=== PATIENT | male | born 1955 | race Caucasian/White ===

== ENCOUNTER 2020-09-28 10:26 | Outpatient (REF) | payer MEDICARE, SELFPAY ==
[2020-09-28 11:19] LABS: MANUAL DIFF FLAG NO
[2020-09-28 11:30] LABS: Basophils Percent Auto 0.8 % (0-2); Eosinophils Absolute Auto 0.1 X10*3/uL (0.0-0.4); Eosinophils Percent Auto 2.3 % (0-4); Hematocrit 44.8 % (42-52); Hemoglobin 15.4 g/dl (14.0-18.0); Imm Gran Abs Auto 0.02 X10*3/uL (0.00-0.03); Imm Gran Pct Auto 0.5 % (0.0-0.4); Lymphocytes Absolute Auto 1.6 X10*3/uL (1.2-4.9); Lymphocytes Percent Auto 40.8 % (20-40); Mean Corpuscular HGB Conc 34.4 g/dl (31.0-36.0); Mean Corpuscular Volume 93.1 fL (80-98); Mean Platelet Volume 10.3 fL (9.4-12.4); Monocytes Absolute Auto 0.5 X10*3/uL (0.1-1.2); Monocytes Percent Auto 11.6 % (2-11); Neutrophils Absolute Auto 1.7 X10*3/uL (2.0-8.3); Platelet Count 236 X10*3/uL (160-400); Red Blood Count 4.81 X10*6/uL (4.60-5.80); Red Cell Distribution Width 12.1 % (11.0-16.0)
[2020-09-28 12:24] LABS: Alanine Aminotransferase 19 U/L (0-40); Albumin Level 4.3 g/dL (3.5-5.0); Alkaline Phosphatase 44 U/L (39-117); Anion Gap 11 (12-20); Aspartate Amino Transferase 19 U/L (5-37); Bilirubin Direct 0.3 mg/dL (0.0-0.5); Bilirubin Total 0.7 mg/dL (0.0-1.0); Blood Urea Nitrogen 14 mg/dL (9-16); Carbon Dioxide 29 mmol/L (22-29); Chloride 102 mmol/L (96-108); Estimated Glomerular Filt Rate > 60; Glucose Random 89 mg/dL (60-115); Potassium 4.3 mmol/l (3.3-5.1); Sodium 138 mmol/L (135-145); Total Protein 6.7 g/dL (6.5-8.0)
[2020-09-28 12:31] LABS: Syphilis Screen Nonreactive (Nonreactive)
[2020-09-29 17:07] LABS: Absolute CD3 Count 1551 cells/uL (840-3060); Absolute CD4 Count 797 cells/uL (490-1740); Absolute CD8 Count 760 cells/uL (180-1170); Absolute Lymphocytes 1784 cells/uL (850-3900); CD4 CD8 Ratio 1.05 (0.86-5.00); Percent CD3 Cells 87 % (57-85); Percent CD4 Cells 45 % (30-61); Percent CD8 Cells 43 % (12-42)
[2020-10-01 13:12] LABS: HIV RNA PCR Qn Copies <20 NOT DETECTED copies/mL (NOT DETECTED); HIV RNA PCR Qn Log Copies <1.30 NOT DETECTED (NOT DETECTED)
== END 2020-09-28 10:27 | disposition home or self-care (01) ==
LOC: HO.LAB 10:26
PROVIDERS: PCP Internal Medicine; Visit Provider Internal Medicine
DX: B20 Human immunodeficiency virus [HIV] disease (principal)
CPT/HCPCS: 36415; 80048; 80076; 85025; 86359; 86360; 86780; 87536

== ENCOUNTER → 2020-10-11 10:01 | Outpatient (BNVA) | payer MEDICARE, SELFPAY | PROVIDERS: PCP Internal Medicine; Referring Provider Internal Medicine; Visit Provider Internal Medicine | DX: B20 Human immunodeficiency virus [HIV] disease (principal); L98.9 Disorder of the skin and subcutaneous tissue, unspecified | CPT/HCPCS: 99212 ==

== ENCOUNTER 2021-03-17 09:34 | Outpatient (REF) | payer MEDICARE, SELFPAY ==
[2021-03-17 10:27] LABS: Hematocrit 44.5 % (42-52); Hemoglobin 14.9 g/dl (14.0-18.0); Mean Corpuscular HGB Conc 33.5 g/dl (31.0-36.0); Mean Corpuscular Hemoglobin 31.4 pg (27.0-33.0); Mean Corpuscular Volume 93.9 fL (80-98); Platelet Count 208 X10*3/uL (160-400); Red Blood Count 4.74 X10*6/uL (4.60-5.80); White Blood Count 3.6 X10*3/uL (4.8-10.8)
[2021-03-17 10:50] LABS: Alanine Aminotransferase 17 U/L (0-40); Albumin Level 4.2 g/dL (3.5-5.0); Alkaline Phosphatase 42 U/L (39-117); Anion Gap 12 (12-20); Aspartate Amino Transferase 19 U/L (5-37); Bilirubin Direct 0.2 mg/dL (0.0-0.5); Bilirubin Total 0.5 mg/dL (0.0-1.0); Blood Urea Nitrogen 10 mg/dL (9-16); Calcium 9.4 mg/dL (8.4-10.2); Carbon Dioxide 27 mmol/L (22-29); Chloride 105 mmol/L (96-108); Estimated Glomerular Filt Rate > 60; Glucose Random 105 mg/dL (60-115); Potassium 4.9 mmol/L (3.3-5.1); Sodium 139 mmol/L (135-145); Total Protein 6.6 g/dL (6.5-8.0)
[2021-03-19 14:16] LABS: HIV RNA PCR Qn Copies <20 NOT DETECTED copies/mL (NOT DETECTED); HIV RNA PCR Qn Log Copies <1.30 NOT DETECTED (NOT DETECTED)
[2021-03-20 14:27] LABS: Absolute CD3 Count 1224 cells/uL (840-3060); Absolute CD4 Count 605 cells/uL (490-1740); Absolute CD8 Count 636 cells/uL (180-1170); Absolute Lymphocytes 1471 cells/uL (850-3900); CD4 CD8 Ratio 0.95 (0.86-5.00); Percent CD3 Cells 83 % (57-85); Percent CD4 Cells 41 % (30-61); Percent CD8 Cells 43 % (12-42)
== END 2021-03-17 09:35 | disposition home or self-care (01) ==
LOC: HO.LAB 09:34
PROVIDERS: PCP Internal Medicine; Visit Provider Internal Medicine
DX: B20 Human immunodeficiency virus [HIV] disease (principal)
CPT/HCPCS: 36415; 80048; 80076; 85027; 86359; 86360; 87536

== ENCOUNTER → 2021-04-04 09:56 | Outpatient (BNVA) | payer MEDICARE, SELFPAY | PROVIDERS: PCP Internal Medicine; Visit Provider Internal Medicine | DX: B20 Human immunodeficiency virus [HIV] disease (principal) | CPT/HCPCS: 99212 ==

== ENCOUNTER 2021-09-21 12:15 | Outpatient (REF) | payer MEDICARE, SELFPAY ==
[2021-09-21 13:00] LABS: Hematocrit 45.2 % (42.0-52.0); Hemoglobin 15.4 g/dl (14.0-18.0); Mean Corpuscular HGB Conc 34.1 g/dl (31.0-36.0); Mean Corpuscular Hemoglobin 32.4 pg (27.0-33.0); Mean Platelet Volume 10.3 fL (9.4-12.4); Platelet Count 229 X10*3/uL (160-400); Red Blood Count 4.76 X10*6/uL (4.60-5.80); Red Cell Distribution Width 12.1 % (11.0-16.0); White Blood Count 4.6 X10*3/uL (4.8-10.8)
[2021-09-21 13:32] LABS: Alanine Aminotransferase 17 U/L (0-40); Albumin Level 4.2 g/dL (3.5-5.0); Alkaline Phosphatase 47 U/L (39-117); Anion Gap 11 (12-20); Aspartate Amino Transferase 19 U/L (5-37); Bilirubin Direct 0.2 mg/dL (0.0-0.5); Bilirubin Total 0.6 mg/dL (0.0-1.0); Blood Urea Nitrogen 10 mg/dL (9-16); Calcium 9.4 mg/dL (8.4-10.2); Carbon Dioxide 28 mmol/L (22-29); Chloride 105 mmol/L (96-108); Estimated Glomerular Filt Rate > 60; Glucose Random 91 mg/dL (60-115); Potassium 4.4 mmol/L (3.3-5.1); Sodium 140 mmol/L (135-145); Total Protein 6.7 g/dL (6.5-8.0)
[2021-09-22 03:51] LABS: Syphilis Screen Nonreactive (Nonreactive)
[2021-09-22 13:32] LABS: Absolute CD3 Count 1283 cells/uL (840-3060); Absolute CD4 Count 657 cells/uL (490-1740); Absolute CD8 Count 625 cells/uL (180-1170); Absolute Lymphocytes 1541 cells/uL (850-3900); CD4 CD8 Ratio 1.05 (0.86-5.00); Percent CD3 Cells 83 % (57-85); Percent CD4 Cells 43 % (30-61); Percent CD8 Cells 41 % (12-42)
[2021-09-22 17:51] LABS: HIV RNA PCR Qn Copies <20 NOT DETECTED copies/mL (NOT DETECTED); HIV RNA PCR Qn Log Copies <1.30 NOT DETECTED (NOT DETECTED)
== END 2021-09-21 12:16 | disposition home or self-care (01) ==
LOC: HO.LAB 12:15
PROVIDERS: Visit Provider Internal Medicine
DX: B20 Human immunodeficiency virus [HIV] disease (principal)
CPT/HCPCS: 36415; 80048; 80076; 85027; 86359; 86360; 86780; 87536

== ENCOUNTER → 2021-10-06 09:50 | Outpatient (BNVA) | payer MEDICARE, SELFPAY | PROVIDERS: PCP Internal Medicine; Visit Provider Internal Medicine | DX: B20 Human immunodeficiency virus [HIV] disease (principal) | CPT/HCPCS: 99212 ==

== ENCOUNTER 2022-03-31 11:53 | Outpatient (REF) | payer MEDICARE, SELFPAY ==
[2022-04-02 07:54] LABS: Syphilis Screen Nonreactive (Nonreactive)
[2022-04-02 12:31] LABS: Absolute CD3 Count 1170 cells/uL (840-3060); Absolute CD4 Count 622 cells/uL (490-1740); Absolute CD8 Count 547 cells/uL (180-1170); Absolute Lymphocytes 1361 cells/uL (850-3900); CD4 CD8 Ratio 1.14 (0.86-5.00); Percent CD3 Cells 86 % (57-85); Percent CD4 Cells 46 % (30-61); Percent CD8 Cells 40 % (12-42)
[2022-04-04 08:51] LABS: HIV RNA PCR Qn Copies 67 copies/mL (NOT DETECTED); HIV RNA PCR Qn Log Copies 1.83 (NOT DETECTED)
== END 2022-03-31 11:54 | disposition home or self-care (01) ==
LOC: HO.HMGCLDS 11:53
PROVIDERS: Visit Provider Internal Medicine
DX: B20 Human immunodeficiency virus [HIV] disease (principal)
CPT/HCPCS: 36415; 86359; 86360; 86780; 87536

== ENCOUNTER → 2022-04-04 10:23 | Outpatient (BNVA) | payer MEDICARE, SELFPAY | PROVIDERS: PCP Internal Medicine; Visit Provider Internal Medicine | DX: B20 Human immunodeficiency virus [HIV] disease (principal) | CPT/HCPCS: 99212 ==

== ENCOUNTER 2022-09-14 09:30 | Outpatient (REF) | payer MEDICARE, SELFPAY ==
[2022-09-14 11:19] LABS: MANUAL DIFF FLAG NO
[2022-09-14 11:32] LABS: Eosinophils Absolute Auto 0.1 X10*3/uL (0.0-0.4); Eosinophils Percent Auto 1.5 % (0-4); Hematocrit 45.4 % (42.0-52.0); Hemoglobin 15.5 g/dl (14.0-18.0); Imm Gran Abs Auto 0.01 X10*3/uL (0.00-0.03); Imm Gran Pct Auto 0.3 % (0.0-0.4); Lymphocytes Absolute Auto 1.3 X10*3/uL (1.2-4.9); Lymphocytes Percent Auto 33.5 % (20-40); Mean Corpuscular HGB Conc 34.1 g/dl (31.0-36.0); Mean Corpuscular Hemoglobin 32.3 pg (27.0-33.0); Mean Corpuscular Volume 94.6 fL (80.0-98.0); Mean Platelet Volume 10.4 fL (9.4-12.4); Monocytes Absolute Auto 0.4 X10*3/uL (0.1-1.2); Monocytes Percent Auto 10.6 % (2-11); Neutrophils Absolute Auto 2.1 x10*3/uL (2.0-8.3); Neutrophils Percent Auto 53.1 % (45-73); Platelet Count 222 X10*3/uL (160-400); Red Cell Distribution Width 11.9 % (11.0-16.0); White Blood Count 3.9 X10*3/uL (4.8-10.8)
[2022-09-14 12:00] LABS: Alanine Aminotransferase 20 U/L (0-40); Albumin Level 4.3 g/dL (3.5-5.0); Alkaline Phosphatase 51 U/L (39-117); Anion Gap 16 (12-20); Aspartate Amino Transferase 21 U/L (5-37); Bilirubin Direct 0.3 mg/dL (0.0-0.5); Bilirubin Total 0.5 mg/dL (0.0-1.0); Blood Urea Nitrogen 13 mg/dL (9-16); Calcium 9.6 mg/dL (8.4-10.2); Carbon Dioxide 27 mmol/L (22-29); Chloride 102 mmol/L (96-108); Estimated Glomerular Filt Rate > 60; Glucose Random 94 mg/dL (60-115); Potassium 4.2 mmol/L (3.3-5.1); Sodium 141 mmol/L (135-145)
[2022-09-14 12:07] LABS: Syphilis Screen Nonreactive (Nonreactive)
[2022-09-14 12:09] LABS: ~HepC Num1 0.13 S/CO (0.00-0.79); ~Hepatitis C Antibody Nonreactive (Nonreactive)
[2022-09-17 13:37] LABS: Absolute CD3 Count 1059 cells/uL (840-3060); Absolute CD4 Count 525 cells/uL (490-1740); Absolute CD8 Count 535 cells/uL (180-1170); Absolute Lymphocytes 1209 cells/uL (850-3900); CD4 CD8 Ratio 0.98 (0.86-5.00); Percent CD3 Cells 88 % (57-85); Percent CD4 Cells 43 % (30-61); Percent CD8 Cells 44 % (12-42)
[2022-09-17 18:32] LABS: TS Negative Control Passed; TS Panel A 2; TS Panel B 5; TS Positive Control Passed; TSpotTB Borderline (Negative)
[2022-09-18 20:03] LABS: HIV RNA PCR Qn Copies NOT DETECTED copies/mL (NOT DETECTED); HIV RNA PCR Qn Log Copies NOT DETECTED (NOT DETECTED)
== END 2022-09-14 09:31 | disposition home or self-care (01) ==
LOC: HO.HMGCLDS 09:30
PROVIDERS: PCP Internal Medicine; Visit Provider Internal Medicine
DX: B20 Human immunodeficiency virus [HIV] disease (principal)
CPT/HCPCS: 36415; 80048; 80076; 85025; 86359; 86360; 86481; 86780; 86803; 87536

== ENCOUNTER → 2022-10-03 15:20 | Outpatient (BNVA) | payer MEDICARE, SELFPAY | PROVIDERS: PCP Internal Medicine; Visit Provider Internal Medicine | DX: B20 Human immunodeficiency virus [HIV] disease (principal) | CPT/HCPCS: 99212 ==

== ENCOUNTER 2023-03-02 07:20 | Outpatient (REF) | payer MEDICARE, SELFPAY ==
[2023-03-02 11:51] LABS: MANUAL DIFF FLAG NO
[2023-03-02 11:53] LABS: Eosinophils Absolute Auto 0.1 X10*3/uL (0.0-0.4); Eosinophils Percent Auto 1.2 % (0-4); Hematocrit 44.8 % (42.0-52.0); Hemoglobin 14.9 g/dl (14.0-18.0); Imm Gran Abs Auto 0.01 X10*3/uL (0.00-0.03); Imm Gran Pct Auto 0.2 % (0.0-0.4); Lymphocytes Absolute Auto 1.2 X10*3/uL (1.2-4.9); Lymphocytes Percent Auto 29.5 % (20-40); Mean Corpuscular HGB Conc 33.3 g/dl (31.0-36.0); Mean Corpuscular Hemoglobin 31.9 pg (27.0-33.0); Mean Corpuscular Volume 95.9 fL (80.0-98.0); Mean Platelet Volume 10.9 fL (9.4-12.4); Monocytes Absolute Auto 0.4 X10*3/uL (0.1-1.2); Monocytes Percent Auto 10.4 % (2-11); Neutrophils Absolute Auto 2.3 x10*3/uL (2.0-8.3); Neutrophils Percent Auto 57.7 % (45-73); Platelet Count 223 X10*3/uL (160-400); Red Blood Count 4.67 X10*6/uL (4.60-5.80); Red Cell Distribution Width 12.4 % (11.0-16.0)
[2023-03-02 12:16] LABS: Alanine Aminotransferase 24 U/L (0-40); Alkaline Phosphatase 42 U/L (39-117); Anion Gap 11 (12-20); Aspartate Amino Transferase 21 U/L (5-37); Bilirubin Direct 0.3 mg/dL (0.0-0.5); Bilirubin Total 0.8 mg/dL (0.0-1.0); Blood Urea Nitrogen 12 mg/dL (9-16); Calcium 9.1 mg/dL (8.4-10.2); Carbon Dioxide 28 mmol/L (22-29); Chloride 106 mmol/L (96-108); Estimated Glomerular Filt Rate > 60; Glucose Random 95 mg/dL (60-115); Potassium 4.3 mmol/L (3.3-5.1); Sodium 141 mmol/L (135-145); Total Protein 6.3 g/dL (6.5-8.0)
[2023-03-04 08:29] LABS: ~Hepatitis C Antibody Nonreactive (Nonreactive)
[2023-03-04 08:54] LABS: Syphilis Screen Nonreactive (Nonreactive)
[2023-03-04 15:48] LABS: Absolute CD3 Count 1152 cells/uL (840-3060); Absolute CD4 Count 602 cells/uL (490-1740); Absolute CD8 Count 549 cells/uL (180-1170); Absolute Lymphocytes 1326 cells/uL (850-3900); Percent CD3 Cells 87 % (57-85); Percent CD4 Cells 45 % (30-61); Percent CD8 Cells 41 % (12-42)
[2023-03-05 20:28] LABS: HIV RNA PCR Qn Copies NOT DETECTED copies/mL (NOT DETECTED); HIV RNA PCR Qn Log Copies NOT DETECTED (NOT DETECTED)
== END 2023-03-02 07:21 | disposition home or self-care (01) ==
LOC: HO.HMGCLDS 07:20
PROVIDERS: PCP Internal Medicine; Visit Provider Internal Medicine
DX: B20 Human immunodeficiency virus [HIV] disease (principal)
CPT/HCPCS: 36415; 80048; 80076; 85025; 86359; 86360; 86780; 86803; 87536

== ENCOUNTER → 2023-04-03 13:58 | Outpatient (BNVA) | payer MEDICARE, SELFPAY | PROVIDERS: PCP Internal Medicine; Visit Provider Internal Medicine | DX: B20 Human immunodeficiency virus [HIV] disease (principal); Z79.899 Other long term (current) drug therapy | CPT/HCPCS: 99212 ==

== ENCOUNTER 2023-04-16 12:02 | Outpatient (REF) | payer MEDICARE, SELFPAY ==
[2023-04-16 14:18] LABS: Cholesterol 279 mg/dL; HDL Cholesterol 113 mg/dL; LDL Cholesterol Calculated 136 mg/dl; Triglycerides 150 mg/dL
== END 2023-04-16 12:03 | disposition home or self-care (01) ==
LOC: HO.HMGCLR 12:02
PROVIDERS: PCP Internal Medicine; Visit Provider Internal Medicine
DX: E78.00 Pure hypercholesterolemia, unspecified (principal)
CPT/HCPCS: 36415; 80061

== ENCOUNTER 2023-09-23 08:13 | Outpatient (REF) | payer MEDICARE, SELFPAY ==
[2023-09-23 11:17] LABS: Basophils Percent Auto 1.1 % (0-2); Eosinophils Percent Auto 1.1 % (0-4); Hematocrit 42.7 % (42.0-52.0); Hemoglobin 14.7 g/dl (14.0-18.0); Imm Gran Abs Auto 0.01 X10*3/uL (0.00-0.03); Imm Gran Pct Auto 0.3 % (0.0-0.4); Lymphocytes Absolute Auto 1.1 X10*3/uL (1.2-4.9); Lymphocytes Percent Auto 30.4 % (20-40); MANUAL DIFF FLAG NO; Mean Corpuscular HGB Conc 34.4 g/dl (31.0-36.0); Mean Corpuscular Hemoglobin 32.8 pg (27.0-33.0); Mean Corpuscular Volume 95.3 fL (80.0-98.0); Mean Platelet Volume 10.8 fL (9.4-12.4); Monocytes Absolute Auto 0.4 X10*3/uL (0.1-1.2); Neutrophils Absolute Auto 2.1 x10*3/uL (2.0-8.3); Neutrophils Percent Auto 56.1 % (45-73); Platelet Count 229 X10*3/uL (160-400); Red Blood Count 4.48 X10*6/uL (4.60-5.80); Red Cell Distribution Width 11.9 % (11.0-16.0); White Blood Count 3.7 X10*3/uL (4.8-10.8)
[2023-09-23 11:32] LABS: Alanine Aminotransferase 19 U/L (0-40); Albumin Level 3.9 g/dL (3.5-5.0); Alkaline Phosphatase 41 U/L (39-117); Anion Gap 11 (12-20); Aspartate Amino Transferase 22 U/L (5-37); Bilirubin Direct 0.2 mg/dL (0.0-0.5); Bilirubin Total 0.5 mg/dL (0.0-1.0); Blood Urea Nitrogen 14 mg/dL (9-16); Carbon Dioxide 28 mmol/L (22-29); Chloride 105 mmol/L (96-108); Estimated Glomerular Filt Rate > 60; Glucose Random 100 mg/dL (60-115); Potassium 3.8 mmol/L (3.3-5.1); Sodium 140 mmol/L (135-145); Total Protein 6.5 g/dL (6.5-8.0)
[2023-09-24 05:40] LABS: Syphilis Screen Nonreactive (Nonreactive)
[2023-09-25 10:03] LABS: Absolute CD3 Count 1038 cells/uL (840-3060); Absolute CD4 Count 530 cells/uL (490-1740); Absolute CD8 Count 511 cells/uL (180-1170); Absolute Lymphocytes 1230 cells/uL (850-3900); CD4 CD8 Ratio 1.04 (0.86-5.00); Percent CD3 Cells 84 % (57-85); Percent CD4 Cells 43 % (30-61); Percent CD8 Cells 42 % (12-42)
[2023-09-25 18:23] LABS: HIV RNA PCR Qn Copies <20 DETECTED copies/mL (NOT DETECTED); HIV RNA PCR Qn Log Copies <1.30 DETECTED (NOT DETECTED)
== END 2023-09-23 08:14 | disposition home or self-care (01) ==
LOC: HO.HMGCLDS 08:13
PROVIDERS: PCP Internal Medicine; Visit Provider Internal Medicine
DX: B20 Human immunodeficiency virus [HIV] disease (principal)
CPT/HCPCS: 36415; 80048; 80076; 85025; 86359; 86360; 86780; 87536

== ENCOUNTER 2023-10-02 12:53 | Outpatient (AMB) | payer MEDICARE, SELFPAY ==
--- NOTE | 2023-10-02 13:11 | A.OFFVIS_ITS ---
Intake Vital Signs 10/02/23 13:13 Height 6 ft Weight 156 lb BMI 21.2 Pulse 78 Pulse Oximetry (%) 98 Intake Visit Reasons: 6 mth f/u HIV Allergies No Known Allergies Allergy (Verified 10/02/23 13:13) seasonal Allergy (Unknown, Uncoded 10/11/20 10:12) Dry Eye HPI 6 mth f/u HIV HPI Details He feels well and has viral load undetectable and CD4 count 530. He has no concerns. He takes Genvoya. [facility] Medical History HIV (human immunodeficiency virus infection) Review of Systems Const All systems reviewed & are unremarkable except as noted in HPI and below Physical Exam Vital Signs: Last Vital Signs Pulse 78 10/02/23 13:13 Pulse Ox 98 10/02/23 13:13 BMI result Body Mass Index 21.2 Const General: cooperative HEENT Head: Yes normal to inspection Face and sinus: Yes normal facial exam Mouth: Normal oral and palatal mucosa present Teeth and gingiva: dentition normal Eyes General: appearance normal, both eyes and all related structures Pupils: Equal, round and reactive pupils present Resp Effort & Inspection: normal respiratory effort Cardio Rate: regular rate Rhythm: regular rhythm GI Palpation (GI): Soft to palpation and nontender General: Yes no CVA tenderness Back/Spine/Pelvis Back: no CVA tenderness Skin General skin exam: no rashes or lesions noted Neuro General: moves all extremities Cranial nerves: Yes Equal, round and reactive pupils present Extrem General: Yes normal to inspection Psych Appearance: grossly normal Assessment & Plan Assessment & Plan (1) HIV (human immunodeficiency virus infection): Comment: He is doing well His viral load is now undetectable He reports excellent adherence. On 09/23 CD4 count is 530 and viral load undetectable. Code(s): B20 - Human immunodeficiency virus [HIV] disease Plan: Continue Genvoya. Check CD4 count and viral load in six months. See in six months. Coding Level of Care Code Est Pt Level 3 (21184) Diagnoses HIV (human immunodeficiency virus infection) B20
[2023-10-02 13:13] VITALS: PULSE 78; O2SAT 98; BMI 21.2
== END 2023-10-02 13:28 | disposition home or self-care (01) ==
PROVIDERS: PCP Internal Medicine; Visit Provider Internal Medicine
DX: B20 Human immunodeficiency virus [HIV] disease (principal)
CPT/HCPCS: 99213

== ENCOUNTER → 2023-10-02 12:53 | Outpatient (BNVA) | payer MEDICARE, SELFPAY | PROVIDERS: PCP Internal Medicine; Visit Provider Internal Medicine | DX: B20 Human immunodeficiency virus [HIV] disease (principal) | CPT/HCPCS: 99212 ==

== ENCOUNTER 2024-03-19 08:57 | Outpatient (REF) | payer MEDICARE, SELFPAY ==
[2024-03-19 11:28] LABS: Syphilis Screen Nonreactive (Nonreactive)
[2024-03-20 10:24] LABS: Absolute CD3 Count 892 cells/uL (840-3060); Absolute CD4 Count 479 cells/uL (490-1740); Absolute CD8 Count 412 cells/uL (180-1170); Absolute Lymphocytes 1071 cells/uL (850-3900); CD4 CD8 Ratio 1.16 (0.86-5.00); Percent CD3 Cells 83 % (57-85); Percent CD4 Cells 45 % (30-61); Percent CD8 Cells 39 % (12-42)
[2024-03-21 14:48] LABS: HIV RNA PCR Qn Copies NOT DETECTED copies/mL (NOT DETECTED); HIV RNA PCR Qn Log Copies NOT DETECTED (NOT DETECTED)
== END 2024-03-19 08:58 | disposition home or self-care (01) ==
LOC: HO.HMGCLDS 08:57
PROVIDERS: PCP Internal Medicine; Visit Provider Internal Medicine
DX: B20 Human immunodeficiency virus [HIV] disease (principal)
CPT/HCPCS: 36415; 86359; 86360; 86780; 87536

== ENCOUNTER 2024-03-22 06:10 | Emergency (ER) | payer MEDICARE, SELFPAY ==
--- NOTE | ~2024-03-22 | XR_ITS ---
EXAMINATION: XR HAND, RIGHT CLINICAL INFORMATION: Pain and swelling after fall COMPARISON: None available. TECHNIQUE: PA, lateral, and oblique views of the right hand. FINDINGS: Visualized portion of the distal radius and ulna demonstrate no fracture. Carpal rows are well-maintained. No carpal bone fracture. No metacarpal or phalangeal fracture. Mild degenerative changes of scattered IP joints. No focal soft tissue swelling. No radiopaque foreign body. XR/XR hand RT min 3V IMPRESSION: Mild degenerative changes of the right hand without fracture.
--- NOTE | ~2024-03-22 | CT_ITS ---
EXAM: 1. Noncontrast CT scan of the head. 2. Noncontrast CT scan of the facial bones. 3. Noncontrast CT scan of the cervical spine. INDICATION: Fall with headache and facial trauma COMPARISON: None available TECHNIQUE: Axial slices were obtained from skull base to vertex and displayed. This was followed by helical, multislice, multidetector axial images from the occiput to the upper thorax. Coronal and sagittal reformats of the cervical spine in addition to coronal reformats of the head were obtained at the technologist workstation. DLP: 1200 mGy-cm FINDINGS: HEAD: There is no evidence of acute intracranial hemorrhage or territorial infarction. No abnormal mass effect or midline shift is appreciated. Hendrix-white differentiation is well preserved. No extra-axial fluid collections. The ventricular system and cortical sulci are prominent, consistent with volume loss. There are areas of low density in the periventricular and subcortical white matter, most consistent with sequelae of microvascular ischemic change. Right supraorbital scalp hematoma. No facial bone fracture. Prominent mucosal thickening of the right maxillary sinus. Other visualized paranasal sinuses and mastoid air cells are well aerated. There are calcifications of the cavernous internal carotid arteries. SPINE: Cervical spine is visualized in its entirety. Alignment is within normal limits. Normal C1/2 articulation. Cervical vertebral body heights are maintained. Cervical disc spaces demonstrate moderate narrowing at the C3/4, C4/5, C5/6 and C6/7 levels. There are some associated endplate changes and moderate-sized osteophytes at these levels. Mild to moderate diffuse bilateral facet hypertrophy which is more prominent on the left. Visualized lung apices are well aerated. CT/CT cervical spine wo IV con IMPRESSION: 1. Right supraorbital scalp hematoma. No facial bone fracture. 2. No acute intracranial pathology. 3. No fractures or dislocations of the cervical spine.
[2024-03-22 06:19] VITALS: BP 171/88; PULSE 64; RESP 18; TEMP 36.6; O2SAT 97; BMI 21.1
--- NOTE | 2024-03-22 06:55 | ED.FALL ---
HPI - Fall General Chief Complaint: Fall Stated Complaint: fall Time Seen by Provider: 03/22/24 06:31 Source: patient and family Mode of arrival: ambulatory Limitations: no limitations History of Present Illness HPI Narrative: 68-year-old male with history of HIV on HAART (viral load undetectable, CD4 count 530) who presents to the ER for evaluation after he tripped and fell last night at home. He states in the middle of the night last night he tripped over his dog and landed face first onto the carpet. He did not lose consciousness and he is not on anticoagulation. He thinks he broke his nose. He had a bloody nose after the fall. He sustained multiple abrasions to his face. He also injured his right hand and wrist by trying to catch himself during the fall. Pain is in the hand over the area of the 1st and 2nd metacarpals. No numbness or tingling. He reports some stiff pain in his neck, worse with movement. No chest pain, abdominal pain. No dizziness prior to the fall. MD complaint: fall Onset (ago): hour(s) Fall from: standing Fall witnessed: no Place fall occurred: home Loss of consciousness: none Prolonged down time: no Symptoms prior to fall: none Context: tripped/slipped Location of injury: face Location of injury - extremities: right: hand Severity: moderate Severity scale (1-10): 6 Quality: aching Associated symptoms (after fall): headache and neck pain Related Data Home Medications ?Medication ?Instructions ?Recorded ?Confirmed cholecalciferol (vitamin D3) 25 25 mcg PO DAILY 10/11/20 04/10/21 mcg (1,000 unit) capsule Previous Rx's ?Medication ?Instructions ?Recorded acyclovir 5 % topical ointment 1 appl topical 6XD 30 days #30 04/04/21 (Zovirax) grams elviteg 150 mg-cob 150 mg-emtricit 1 tab PO DAILY 90 days #90 tabs 10/10/23 200 mg-tenofo alafenam 10 mg tablet (Genvoya) Allergies Allergy/AdvReac Type Severity Reaction Status Date / Time No Known Allergies Allergy Verified 03/22/24 06:20 seasonal Allergy Unknown Dry Eye Uncoded 03/22/24 06:20 Review of Systems Review of Systems: Yes all other systems are reviewed and are negative PMFSH Past Medical History Medical History HIV (human immunodeficiency virus infection) Social History Social History Smoked in Last 30 Days: No Advance Directives: No Advance Directives Information Provided: No Physical Exam Vital Signs: Vital Signs: Last Vital Signs Temp 97.9 F 03/22/24 06:19 Pulse 64 03/22/24 06:19 Resp 18 03/22/24 06:19 BP 171/88 H 03/22/24 06:19 Pulse Ox 97 03/22/24 06:19 O2 Del Method Room Air 03/22/24 06:19 BMI result Body Mass Index 21.1 Appearance: Alert. Oriented X3. No acute distress. Head/face: normocephalic. nontender scalp, no palpable hematomas or depressions. face with multiple superficial abrasions over the forehead, nose Eyes: Pupils equal, round and reactive to light. EOMI ENT: Pharynx normal. No tonsillar swelling or exudate. No dental trauma. Nose w/ swelling, no septal deviation or hematoma, no epistaxis. Neck: Normal inspection. Neck supple. CVS: Normal heart rate and rhythm. Pulses normal. Respiratory: No respiratory distress. Breath sounds normal. Abdomen: Soft and nontender. +BS x4 Skin: Skin warm and dry. Normal skin color. Normal skin turgor. No rashes. Extremities: No lower extremity edema. No joint swelling. Right hand and wrist are normal to inspection, tender over the 1st and 2nd metacarpals. NV intact distally. equal maintenance analyst strength bilaterally. nontender right wrist. Neuro/psych: Oriented X 3. No motor deficit. No sensory deficit. CN II-XII intact. Normal speech and cognition. Medications Administered Discontinued Medications Generic Name Dose Route Start Last Admin Trade Name Freq PRN Reason Stop Dose Admin Acetaminophen 975 mg 03/22/24 07:00 03/22/24 07:06 Acetaminophen 325 Mg Tablet PO 03/22/24 07:01 975 mg ONCE ONE Administration Ibuprofen 600 mg 03/22/24 07:00 03/22/24 07:06 Ibuprofen 600 Mg Tablet PO 03/22/24 07:01 600 mg ONCE ONE Administration Medical Decision Making Medical Decision Making MDM Narrative: 68-year-old male presenting to the ER for evaluation of a possible broken nose and right wrist after falling over his dog last night. He comes in with superficial abrasions and swelling to the forehead and nose, tenderness of the right hand and wrist. Imaging was performed which does not show any acute fractures or injuries. There is a hematoma on the right forehead. We discussed the results of his imaging studies as well as management. His right wrist was placed in a velcro wrist splint for support, likely sprain. At this time is stable for discharge home with supportive care and outpatient follow-up as needed. Differential Diagnosis Differential Diagnoses: The differential diagnosis associated with the presentation includes Broken wrist, wrist sprain/strain. Facial contusion, hematoma, nasal bone fracture, orbital fracture, low clinical suspicion for intracranial hemorrhage or cervical spinal fracture Admission/Observation Consideration of admission/observation: Escalation of care including admission/observation considered elderly male w/ facial trauma, considered obs vs admit - imaging unremarkable. stable for d/c home Independent Interpretation I performed an independent interpretation of an: Plain X-Ray and CT Scan Interpretation: xr without acute fracture, agree w/ radiology read CT without acute bleed or edema, agree w/ radiology read Radiology Impression Discussion of test interpretation with radiology: I have reviewed the radiologist's reading. Radiologist Impression: EXAMINATION: XR HAND, RIGHT CLINICAL INFORMATION: Pain and swelling after fall COMPARISON: None available. TECHNIQUE: PA, lateral, and oblique views of the right hand. FINDINGS: Visualized portion of the distal radius and ulna demonstrate no fracture. Carpal rows are well-maintained. No carpal bone fracture. No metacarpal or phalangeal fracture. Mild degenerative changes of scattered IP joints. No focal soft tissue swelling. No radiopaque foreign body. XR/XR hand RT min 3V IMPRESSION: Mild degenerative changes of the right hand without fracture. EXAM: 1. Noncontrast CT scan of the head. 2. Noncontrast CT scan of the facial bones. 3. Noncontrast CT scan of the cervical spine. INDICATION: Fall with headache and facial trauma COMPARISON: None available TECHNIQUE: Axial slices were obtained from skull base to vertex and displayed. This was followed by helical, multislice, multidetector axial images from the occiput to the upper thorax. Coronal and sagittal reformats of the cervical spine in addition to coronal reformats of the head were obtained at the technologist workstation. DLP: 1200 mGy-cm FINDINGS: HEAD: There is no evidence of acute intracranial hemorrhage or territorial infarction. No abnormal mass effect or midline shift is appreciated. Hendrix-white differentiation is well preserved. No extra-axial fluid collections. The ventricular system and cortical sulci are prominent, consistent with volume loss. There are areas of low density in the periventricular and subcortical white matter, most consistent with sequelae of microvascular ischemic change. Right supraorbital scalp hematoma. No facial bone fracture. Prominent mucosal thickening of the right maxillary sinus. Other visualized paranasal sinuses and mastoid air cells are well aerated. There are calcifications of the cavernous internal carotid arteries. SPINE: Cervical spine is visualized in its entirety. Alignment is within normal limits. Normal C1/2 articulation. Cervical vertebral body heights are maintained. Cervical disc spaces demonstrate moderate narrowing at the C3/4, C4/5, C5/6 and C6/7 levels. There are some associated endplate changes and moderate-sized osteophytes at these levels. Mild to moderate diffuse bilateral facet hypertrophy which is more prominent on the left. Visualized lung apices are well aerated. CT/CT cervical spine wo IV con IMPRESSION: 1. Right supraorbital scalp hematoma. No facial bone fracture. 2. No acute intracranial pathology. 3. No fractures or dislocations of the cervical spine. Independent Historian Clinical information obtained from an independent historian. History obtained from or confirmed by: Spouse External Record Review External record reviewed: Office record, Outpatient record and Prior outpatient labs Prescription Management I considered prescription management with: Pain Medication Critical Care Time Critical Care Time Critical Care Time: No Discharge Plan Discharge Clinical Impression: Contusion of nose Right wrist sprain Qualifiers: Encounter type: initial encounter Qualified Code(s): S63.501A - Unspecified sprain of right wrist, initial encounter Traumatic hematoma of forehead Qualifiers: Encounter type: initial encounter Qualified Code(s): S00.83XA - Contusion of other part of head, initial encounter Abrasion of face Qualifiers: Encounter type: initial encounter Qualified Code(s): S00.81XA - Abrasion of other part of head, initial encounter Patient Disposition: Home, Self-Care Instructions: Wrist Sprain (ED), Nasal Contusion (ED) Additional Instructions: Your CT scans did not show any broken bones. You have a hematoma on the right side of her forehead. Your x-ray did not show any broken bones in your hand or wrist. Use ice to the areas of pain to help with swelling and bruising. Take Motrin and Tylenol as needed for pain. Wear the wrist splint as needed for comfort. Follow-up with your doctor Use bacitracin or Neosporin to the abrasions on your face to help promote healing and prevent infection If you develop new or worsening symptoms call 911 or come back to the ER for further evaluation. Prescriptions: No Action acyclovir [Zovirax] 5 % ointment 1 appl topical 6XD 30 Days Qty: 30 5RF cholecalciferol (vitamin D3) 25 mcg (1,000 unit) capsule 25 mcg PO DAILY Genvoya [phone] mg tablet 1 tab PO DAILY 90 Days Qty: 90 1RF Rx Instructions: must administer with a meal/food Referrals: Artemio Navarrete MD [Primary Care Provider] - Print Language: Croatian
[2024-03-22] MEDS: Ibuprofen 600 MG TABLET PO (07:06)
[2024-03-22] MEDS: Acetaminophen 325 MG TABLET 975 MG PO (07:06)
[2024-03-22 08:28] VITALS: BP 151/96; PULSE 71; RESP 20; TEMP -17.7; TEMP 0; O2SAT 97
== END 2024-03-22 08:29 | disposition home or self-care (01) ==
PROVIDERS: Emergency Provider Emergency Medicine; PCP Internal Medicine
DX: S00.33XA Contusion of nose, initial encounter (principal); S00.83XA Contusion of other part of head, initial encounter; S63.501A Unspecified sprain of right wrist, initial encounter; S00.81XA Abrasion of other part of head, initial encounter; Z21 Asymptomatic human immunodeficiency virus [HIV] infection status; Z79.899 Other long term (current) drug therapy; W01.0XXA Fall on same level from slipping, tripping and stumbling without subsequent striking against object, initial encounter; Y93.9 Activity, unspecified; Y92.009 Unspecified place in unspecified non-institutional (private) residence as the place of occurrence of the external cause; Y99.9 Unspecified external cause status
CPT/HCPCS: 70450; 70486; 72125; 73130; 99284; 99285

== ENCOUNTER 2024-04-01 13:10 | Outpatient (AMB) | payer MEDICARE, SELFPAY ==
[2024-04-01 13:11] VITALS: PULSE 75; O2SAT 98; BMI 21.2
--- NOTE | 2024-04-01 13:11 | MHC.OFFVIS ---
Vital Signs 04/01/24 13:11 Height 6 ft Weight 156 lb BMI 21.2 Pulse 75 Pulse Source Pulse Oximeter Pulse Oximetry (%) 98 Intake Visit Reasons: F/U,6 mth.HIV Allergies No Known Allergies Allergy (Verified 03/22/24 06:20) seasonal Allergy (Unknown, Uncoded 03/22/24 06:20) Dry Eye HPI HPI F/U,6 mth.HIV: Details: He has been doing well. 03/19 CD4 count and viral load undetectable. He has no changes in history. [facility] Medical History HIV (human immunodeficiency virus infection) Review of Systems Const All systems reviewed & are unremarkable except as noted in HPI and below Physical Exam Vital Signs: Last Vital Signs Pulse 75 04/01/24 13:11 Pulse Ox 98 04/01/24 13:11 BMI result Body Mass Index 21.2 Const General: cooperative Orientation/consciousness: patient oriented x3 HEENT Head: Yes normal to inspection Mouth: Normal oral and palatal mucosa present Eyes General: appearance normal, both eyes and all related structures Pupils: Equal, round and reactive pupils present Resp Effort & Inspection: normal respiratory effort Cardio Rate: regular rate Rhythm: regular rhythm GI Palpation (GI): Soft to palpation and nontender General: Yes no CVA tenderness Back/Spine/Pelvis Back: no CVA tenderness Skin General skin exam: no rashes or lesions noted Neuro General: patient oriented x3 Cranial nerves: Yes CN's II-XII intact bilaterally and Yes Equal, round and reactive pupils present Extrem General: Yes normal to inspection Psych Appearance: grossly normal Assessment & Plan Assessment & Plan (1) HIV (human immunodeficiency virus infection): Comment: He is doing well His viral load is now undetectable He reports excellent adherence. On 03/19 CD4 count and viral load undetectable. Code(s): B20 - Human immunodeficiency virus [HIV] disease Category: Medical Plan: Continue Genvoya. Check labs in six months and renew medication. Orders: Orders HIV-1 RNA QN PCR Expanded 6 Months B20 - Human immunodeficiency virus [HIV] disease Lymphocyte Subset Panel 3 6 Months B20 - Human immunodeficiency virus [HIV] disease Syphilis Screen 6 Months B20 - Human immunodeficiency virus [HIV] disease Medications: Refilled vstkfim-hvc-ojldk-tenof alafen [phone] mg (Genvoya) must administer with a meal/food 1 tab PO DAILY 90 tabs 1RF 90 days Coding Level of Care Code Est Pt Level 4 (69898) Diagnoses HIV (human immunodeficiency virus infection) B20
== END 2024-04-01 13:35 | disposition home or self-care (01) ==
LOC: HO.HID 13:10
PROVIDERS: PCP Internal Medicine; Visit Provider Internal Medicine
DX: B20 Human immunodeficiency virus [HIV] disease (principal)
CPT/HCPCS: 99214

== ENCOUNTER → 2024-04-01 13:10 | Outpatient (BNVA) | payer MEDICARE, SELFPAY | PROVIDERS: PCP Internal Medicine; Visit Provider Internal Medicine | DX: B20 Human immunodeficiency virus [HIV] disease (principal) | CPT/HCPCS: 99212 ==

== ENCOUNTER 2024-09-22 07:34 | Outpatient (REF) | payer MEDICARE, SELFPAY ==
[2024-09-22 11:05] LABS: Syphilis Screen Nonreactive (Nonreactive)
[2024-09-24 17:43] LABS: HIV RNA PCR Qn Copies NOT DETECTED copies/mL (NOT DETECTED); HIV RNA PCR Qn Log Copies NOT DETECTED (NOT DETECTED)
[2024-09-29 14:14] LABS: Absolute CD3 Count 981 cells/uL (840-3060); Absolute CD4 Count 537 cells/uL (490-1740); Absolute CD8 Count 454 cells/uL (180-1170); Absolute Lymphocytes 1136 cells/uL (850-3900); CD4 CD8 Ratio 1.18 (0.86-5.00); Percent CD3 Cells 86 % (57-85); Percent CD4 Cells 47 % (30-61); Percent CD8 Cells 40 % (12-42)
== END 2024-09-22 07:35 | disposition home or self-care (01) ==
LOC: HO.HMGCLDS 07:34
PROVIDERS: PCP Internal Medicine; Visit Provider Internal Medicine
DX: B20 Human immunodeficiency virus [HIV] disease (principal)
CPT/HCPCS: 36415; 86359; 86360; 86780; 87536

== ENCOUNTER 2024-09-30 14:41 | Outpatient (AMB) | payer MEDICARE, SELFPAY ==
--- NOTE | 2024-09-30 14:44 | A.OFFVIS_ITS ---
Vital Signs 09/30/24 14:47 Height 6 ft Weight 155 lb BMI 21.0 Pulse 68 Pulse Source Pulse Oximeter Pulse Oximetry (%) 99 Oxygen Delivery Method Room Air Intake Visit Reasons: F/U,6 mth.HIV Allergies No Known Allergies Allergy (Verified 09/30/24 14:47) seasonal Allergy (Unknown, Uncoded 03/22/24 06:20) Dry Eye HPI HPI F/U,6 mth.HIV: Details: He has been doing well, He has CD4 count 537 and viral load undetectable on 09/22. He has no complaints. [facility] Medical History HIV (human immunodeficiency virus infection) Review of Systems Const All systems reviewed & are unremarkable except as noted in HPI and below Physical Exam Vital Signs: Last Vital Signs Pulse 68 09/30/24 14:47 Pulse Ox 99 09/30/24 14:47 Oxygen Delivery Method Room Air 09/30/24 14:47 BMI result Body Mass Index 21.0 Const General: cooperative Orientation/consciousness: patient oriented x3 HEENT Head: Yes normal to inspection Mouth: Normal oral and palatal mucosa present Eyes General: appearance normal, both eyes and all related structures Pupils: Equal, round and reactive pupils present Resp Effort & Inspection: normal respiratory effort Cardio Rate: regular rate Rhythm: regular rhythm GI Palpation (GI): Soft to palpation and nontender General: Yes no CVA tenderness Back/Spine/Pelvis Back: no CVA tenderness Skin General skin exam: no rashes or lesions noted Neuro General: patient oriented x3 Cranial nerves: Yes CN's II-XII intact bilaterally and Yes Equal, round and reactive pupils present Extrem General: Yes normal to inspection Psych Appearance: grossly normal Assessment & Plan Assessment & Plan (1) HIV (human immunodeficiency virus infection): Comment: He is doing well His viral load is now undetectable He reports excellent adherence. On 09/22 CD4 count 537 and viral load undetectable. Code(s): B20 - Human immunodeficiency virus [HIV] disease Category: Medical Plan: Continue current medication. See in six month and check CD4 count and viral load . Meds refilled and see in six months. Orders: Orders HIV-1 RNA QN PCR Expanded 6 Months B20 - Human immunodeficiency virus [HIV] disease Lymphocyte Subset Panel 3 6 Months B20 - Human immunodeficiency virus [HIV] disease Syphilis Screen 6 Months B20 - Human immunodeficiency virus [HIV] disease Medications: Refilled zblcuvk-nvw-cghyp-tenof alafen [phone] mg (Genvoya) must administer with a meal/food 1 tab PO DAILY 90 tabs 1RF 90 days uophcyt-uxb-yjwul-tenof alafen [phone] mg (Genvoya) must administer with a meal/food 1 tab PO DAILY 90 tabs 1RF 90 days Coding Level of Care Code Est Pt Level 4 (51220) Diagnoses HIV (human immunodeficiency virus infection) B20
[2024-09-30 14:47] VITALS: PULSE 68; O2SAT 99; BMI 21.0
== END 2024-09-30 15:19 | disposition home or self-care (01) ==
PROVIDERS: PCP Internal Medicine; Visit Provider Internal Medicine
DX: B20 Human immunodeficiency virus [HIV] disease (principal)
CPT/HCPCS: 99214

== ENCOUNTER → 2024-09-30 14:41 | Outpatient (BNVA) | payer MEDICARE, SELFPAY | PROVIDERS: PCP Internal Medicine; Visit Provider Internal Medicine | DX: B20 Human immunodeficiency virus [HIV] disease (principal); N18.4 Chronic kidney disease, stage 4 (severe) | CPT/HCPCS: 99212 ==

== ENCOUNTER 2025-03-09 08:27 | Outpatient (REF) | payer MEDICARE, SELFPAY ==
--- OUTSIDE RECORDS SUMMARY | 2025-03-09 08:48 | XMS_ITS | Clinical Summary ---
Author Organization [employer] Address [address] [place] [address] Care Team Providers Care Career Coach Name Role Phone Unavailable Primary Care Provider Unavailabl e Social History Tobacco Use Types Packs/Day Years Used Date Smoking Tobacco: Never Assessed Sex and Gender Information Value Date Recorded Sex Assigned at Male 09/17/2022 10:24 AM EDT Legal Sex Male 10:24 AM EDT Gender Identity Male 09/17/2022 10:24 AM EDT Sexual Orientation Lesbian or Cardozo 09/17/2022 10 :24 AM EDT Plan of Treatment Health Maintenance Due Date Last Done Comments CT Colonography 1955 Colonoscopy 1955 Colorectal Cancer Screening 1955 Depression Screening 1955 FIT DNA/Cologuard 1955 FIT 1955 FOBT 1955 Lipid Panel 1955 Sigmoidoscopy 1955 Alcohol/Substance Use Screening 1967 Tobacco Screening 1967 DTaP/Tdap/Td Vaccines (1 - Tdap) 1974 Pneumococcal Vaccine: 50+ Ye ars (1 of 1 - PCV) 2005 Zoster Vaccines (1 of 2) 2005 COVID-19 Vaccine ( - 2023-2 5 season) 2024 Influenza Vaccine (#1) 2024 RSV Patients and Pa tients Aged 60 years or older (1 - 1-dose 75+ series) 2030 HIB Vaccines Aged Out No longer eligi ble based on patient's age to complete this topic HPV Vaccines Aged Out No longer eligi ble based on patient's age to complete this topic Hepatitis A Vaccines Aged Out No long er eligible based on patient's age to complete this topic Hepatitis B Vaccines Aged Out No long er eligible based on patient's age to complete this topic IPV Vaccines Aged Out No longer eligi ble based on patient's age to complete this topic Meningococcal Vaccine Aged Out No amy josue eligible based on patient's age to complete this topic RSV under 20 months Aged Out No longe r eligible based on patient's age to complete this topic Rotavirus Vaccines Aged Out No longer eligible based on patient's age to complete this topic
--- OUTSIDE RECORDS SUMMARY | 2025-03-09 08:48 | XMS_ITS | Encounter Summary ---
Author Organization [employer] Address [address] [place] [address] Care Team Providers Care Media Services Specialist Name Role Phone Unavailable Primary Care Provider Unavailabl e Encounter Details Date Type Department Care Team (Latest Contact Info) Description 12/08/2019 Abstract C CONVERSIONS Dental, Provider, DDS Social History Tobacco Use Types Packs/Day Years Used Date Smoking Tobacco: Never Assessed Sex and Gender Information Value Date Recorded Sex Assigned at Male 09/17/2022 10:24 AM EDT Legal Sex Male 10:24 AM EDT Gender Identity Male 09/17/2022 10:24 AM EDT Sexual Orientation Lesbian or Cardozo 09/17/2022 10 :24 AM EDT documented as of this encounter Plan of Treatment Not on file documented as of this encounter Visit Diagnoses Not on filedocumented in this encounter
--- OUTSIDE RECORDS SUMMARY | 2025-03-09 08:48 | XMS_ITS | Data Portability ---
Author Organization [facility] , [address] Address [address] [place] [address] Care Team Providers Care Window Air Conditioner Installer Name Role Phone NATASHA WALTON Primary Care Provider [phone] Assessment No assessment recorded. Plan of Treatment Reminders Order Date Submit Date Provider Last Modified By Organization Details Last Modified Time Details Appointments None recorded. Lab None recorded. Referral None recorded. Procedures None recorded. Surgeries None recorded. Imaging None recorded. Medication Orders erythromyci n 5 mg/gram (0.5 %) eye ointment 2022 023 [facility] [address], [address] [place], [address], 10:45:11 Patient TargetsNo targets recorded. Patient Instructions Encounter Date Encounter Id Patient Instructions Last Modified By Organization Details Last Modified Time 05/06/2023 [id number] styes and chalazia: care instructions [email or web address] Not available 05/06/2023 10:45:09 Reason for Referral None Reported. Procedures Surgical History Date Name Laterality Status Provider Name and Address Organization Details Recorded Time prostatectomy completed [facility] 05/06/2023 10:05:58 Imaging Results None recorded. Procedure Notes None recorded. Medical Equipment None Reported. Allergies No known drug allergies Medications Name Sig Start Date Stop Date Status Note LastModified by Organization Details LastModified Time erythromycin 5 mg/gram (0.5 %) eye ointment Apply 1 application 3 times a day by ophthalmic route for 7 days. 2022 active Not Available Not Available Not Avai lable Vitamin D3 active Not Available Not Av ailable Not Available Genvoya active Not Available Not Avail able Not Available Vitals Date Recorded Body height Body mass index (BMI) Body weight Body temperature Oxygen saturation Oxygen saturation in Arterial blood by Pulse oximetry Heart rate Respiratory rate Systolic blood pressure Diastolic blood pressure Provider Name and Address Organization Details Last Updated DateTime 3 182.88 cm 21 kg/m2 15359.8 2 g 98 [degF] 98 % 98 % 63 /min 16 /min 153 mm[Hg] 83 mm[Hg] JILL SWEET PA - [facility] 3 10:10:22 Social History Question Answer Notes LastModified by Organizat ion Details LastModified Time What Is Your Level Of Alcohol Consumption? Moderate [email or web address] Information not available 05/06/2023 How Many Times Per Week Do You Consume Alcohol? 5-7 Times Per Week Information not available 05/06/2023 What Is Your Water Source? Well Information not available 05/06/2023 Do You Use Any Illicit Or Recreational Drugs? No [email or web address] Information not available 05/06/2023 Have You Recently Traveled Abroad? No [email or web address] Information not available 05/06/2023 Do You Or Have You Ever Used Any Other Forms Of Tobacco Or Nicotine? No [email or web address] Information not available 05/06/2023 Sex: Unknown Functional Status None recorded. Mental Status None recorded. Family History Nothing Reported. Medical History Condition Response Gout N Cancer, liver N Thyroid disorder N Hyperthyroidism N Rheumatoid arthritis N GI bleeding N Irritable bowel syndrome N Depression N COPD N Tinnitus, unspecified ear N Pneumonia N Cancer, uterus N Mental disorder, NOS N Headaches/Migraines N Insomia N Alzheimer's disease N Anxiety Disorder N Obesity N Arthritis N Cancer Y Stroke N Alcohol abuse N Liver disease N Cancer, bladder N Allergy Food/Medication N Peripheral artery disease N Oxygen dependence N Fibromyalgia N Atrial fibrillation N Tinnitus, right ear N Kidney Disease N Deep vein thrombosis DVT leg N Migraine N Disorder of circulatory system N Anxiety N Cancer, brain N Disease of pancreas N Cancer, lung N Eating disorder, unspecified N Cancer, colon N Crohn's disease N Cancer, cervical N N Cancer, breast N Cancer, skin N Coagulation defect, unspecified N Cataract Y Asthma N Congestive heart failure (CHF) N Substance Abuse N Vertigo N Coronary artery disease N Pulmonary Embolism N Cancer, pancreas N Tobacco use disorder N Disease of lung N Allergic rhinitis N Joint disorder, unspecified N Menopause N Drug dependence, unspecified N Back disorder N Hypothyroidism N Disorder kidney N Sickle Cell Anemia N Cancer, ovarian N Bailey's Palsy N Disorder of eye N Cancer, prostate N Allergy Seasonal N Drug abuse N Disorder of urinary system N Disorder of lymph system N Radiculopathy, site unspecified N Myoneural disorder, unspecified N Nervous system disorder N ADHD N High Cholesterol N Post-herpetic neuralgia N Aneurysm, cerebral N Tinnitus, left ear N Prostate hypertrophy, benign N Disorder of skin/subcutaneous N Osteoarthritis N Disorder of ear N Ovarian cysts N Parkinson's disease N Low back pain N Carpal tunnel syndrome N Disorder of muscle N Anemia N Kidney stone N Bipolar affective disorder N Leukemia, unspecified N Diabetes N Endocrine disorder N Disorder involving the immune mechanism N Seizure N Hyperlipidemia N Lymphoma N Emphysema, unspecified N Eczema N Diverticulitis N Dementia N Lupus N Seizure disorder N Reflux/GERD N Sleep Apnea N Cancer, bone N Disorder of thyroid N Cardiac arrhythmia, unspecified N Disorder of bone N Heart Disease N Liver Disorder N Disorder of brain N Hypertension N Aneurysm, aortic N Osteoporosis N Gastroesophageal reflux (GERD) N Disease of digestive system, unspecified N Immunizations Vaccine Type Date Status Note Provider Nam e and Address Organization Details Recorded Time Influenza, high-dose, quadrivalent, PF 3 completed JILL FELICIANOY null, PA - [facility] 05/06/2023 10:08:54 Influenza, high-dose, quadrivalent, PF 1 completed JILL SWEET null, PA - [facility] 05/06/2023 10:08:54 COVID-19, mRNA, LNP-S, PF, 30 mcg/0.3 mL dose 1 completed JILL FELICIANOY null, PA - [facility] 05/06/2023 10:08:54 COVID-19, mRNA, LNP-S, PF, 30 mcg/0.3 mL dose 1 completed JILL SWEET null, PA - [facility] 05/06/2023 10:08:54 COVID-19, mRNA, LNP-S, PF, 30 mcg/0.3 mL dose 1 completed CARRIANNE MICKI null, PA - [facility] 05/06/2023 10:08:54 COVID-19, mRNA, LNP-S, PF, 30 mcg/0.3 mL dose, cris-sucrose 2 completed CARRIANNE MICKI null, PA - [facility] 05/06/2023 10:08:54 pneumococcal polysaccharide PPV23 3 completed CARRIANNE MICKI null, PA - [facility] 05/06/2023 10:08:54 Tdap 0 completed CARRIANNE MICKI null, PA - [facility] 05/06/2023 10:08:54 Pneumococcal conjugate PCV 13 1 completed CARRIANNE MICKI null, PA - [facility] 05/06/2023 10:08:54 Influenza, split virus, quadrivalent, PF 0 completed CARRIANNE MICKI null, PA - [facility] 05/06/2023 10:08:54 Influenza, split virus, quadrivalent, PF 9 completed CARRIANNE MICKI null, PA - [facility] 05/06/2023 10:08:54 Past Encounters Encounter ID Performer Location Encounter Start Date Encounter Closed Date Diagnosis/Indication Diagnosis SNOMED-CT Code Diagnosis ICD10 Code Diagnosis Note [id number] [address] [place] [address] 05/03/2019 09:18:03 05/03/2019 09:45:46 [id number] [address] [place] [address] 10/04/2022 09:48:34 10/04/2022 10:43:11 [id number] [address] [place] [address] 12/14/2017 14:37:20 12/14/2017 15:37:45 [id number] Zac Guardado MD [address] [place] [address] 05/06/2023 09:36:51 05/06/2023 10:49:25 Internal hordeolum of lower eyelid 894017510 H00.029 Appkly warm compresses to right eye 3 times per day Health Concerns Section Related Observation LastModified by Organization Detai ls LastModified Time None Recorded Concern Status LastModified by Organization Details LastModified Time None Recorded Advance Directives Directive None Recorded Payers Encounter Date Sequence Insurance Name Policy Number Policy Hall Covered Member ID Hall Member ID Guarantor Name 05/03/2019 1 [employer] - MEDICARE ADVANTAGE PLAN (MEDICARE REPLACEMENT HMO) [id number] Andrea Del Real [id number] Andrea Del Real 10/04/2022 1 [employer] - MEDICARE ADVANTAGE PLAN (MEDICARE REPLACEMENT HMO) [id number] Andrea Del Real [id number] Andrea Del Real 05/06/2023 1 [employer] [place] MEDICARE ADVANTAGE [facility] (MEDICARE REPLACEMENT HMO) [id number] Andrea Del Real [id number] Andrea Del Real Notes Date Note Type Note Provider Name and Address Organization Details Recorded Time 05/06/2023 text/html Eye problemsRepo rted bypatient.Location:[facility] Eye Symptoms:sensitivity to light;pain worse with eye movement;redness;blur red vision;foreign body sensation;pain in the eyes;discharge;seeing double;watery;itching Onset/Timindays Zac Guardado [facility] [place], [address], [place] - [facility] 05/06/2023 10:46:43
--- OUTSIDE RECORDS SUMMARY | 2025-03-09 08:49 | XMS_ITS | Encounter Summary ---
Author Organization [employer] Address [address] [place] [address] Care Team Providers Care Cyanide Pot Tender Name Role Phone Unavailable Primary Care Provider Unavailabl e Encounter Details Date Type Department Care Team (Latest Contact Info) Description 07/25/2022 Abstract [facility] CONVERSIONS Dental, Provider, DDS Social History Tobacco [...]
--- OUTSIDE RECORDS SUMMARY | 2025-03-09 08:49 | XMS_ITS | Encounter Summary ---
Author Organization [employer] Address [address] [place] [address] Care Team Providers Care Forestry Aid Technician Name Role Phone Unavailable Primary Care Provider Unavailabl e Encounter Details Date Type Department Care Team (Latest Contact Info) Description 06/06/2020 Abstract C CONVERSIONS Dental, Provider, DDS Social [...]
[2025-03-09 11:12] LABS: Syphilis Screen Nonreactive (Nonreactive)
[2025-03-10 22:59] LABS: HIV RNA PCR Qn Copies NOT DETECTED copies/mL (NOT DETECTED); HIV RNA PCR Qn Log Copies NOT DETECTED (NOT DETECTED)
[2025-03-14 17:29] LABS: Absolute CD3 Count 985 cells/uL (840-3060); Absolute CD4 Count 520 cells/uL (490-1740); Absolute CD8 Count 467 cells/uL (180-1170); Absolute Lymphocytes 1204 cells/uL (850-3900); CD4 CD8 Ratio 1.11 (0.86-5.00); Percent CD3 Cells 82 % (57-85); Percent CD4 Cells 43 % (30-61); Percent CD8 Cells 39 % (12-42)
== END 2025-03-09 08:28 | disposition home or self-care (01) ==
LOC: HO.HMGCLDS 08:27
PROVIDERS: PCP Internal Medicine; Visit Provider Internal Medicine
DX: B20 Human immunodeficiency virus [HIV] disease (principal)
CPT/HCPCS: 36415; 86359; 86360; 86780; 87536

== ENCOUNTER 2025-04-02 10:39 | Outpatient (AMB) | payer MEDICARE, SELFPAY ==
--- NOTE | 2025-04-02 10:38 | MHC.OFFVIS ---
Vital Signs 04/02/25 10:39 Height 6 ft Weight 154 lb BMI 20.9 Pulse 62 Pulse Source Pulse Oximeter Pulse Oximetry (%) 99 Oxygen Delivery Method Room Air Intake Visit Reasons: 6 month HIV labs Allergies No Known Allergies Allergy (Verified 04/02/25 10:41) seasonal Allergy (Unknown, Uncoded 03/22/24 06:20) Dry Eye HPI HPI 6 month HIV labs: Details: He is doing well except he lost job but otherwise has no concerns. His CD4 count is 520 and viral load undetectable on 03/09/2025. He takes Genvoya. He sees Dr Navarrete. [facility] Medical History HIV (human immunodeficiency virus infection) Review of Systems Const All systems reviewed & are unremarkable except as noted in HPI and below Physical Exam Vital Signs: Last Vital Signs Pulse 62 04/02/25 10:39 Pulse Ox 99 04/02/25 10:39 Oxygen Delivery Method Room Air 04/02/25 10:39 BMI result Body Mass Index 20.9 Const General: cooperative Orientation/consciousness: patient oriented x3 HEENT Head: Yes normal to inspection Mouth: Normal oral and palatal mucosa present Eyes General: appearance normal, both eyes and all related structures Pupils: Equal, round and reactive pupils present Resp Effort & Inspection: normal respiratory effort Cardio Rate: regular rate Rhythm: regular rhythm GI Palpation (GI): Soft to palpation and nontender General: Yes no CVA tenderness Back/Spine/Pelvis Back: no CVA tenderness Skin General skin exam: no rashes or lesions noted Neuro General: patient oriented x3 Cranial nerves: Yes CN's II-XII intact bilaterally and Yes Equal, round and reactive pupils present Extrem General: Yes normal to inspection Psych Appearance: grossly normal Assessment & Plan Assessment & Plan (1) HIV (human immunodeficiency virus infection): Comment: He is doing well. He has CD4 count of 520 and viral load undetectable on 03/09/2025. He takes Genvoya daily and gets it 90 day with one refill. He declines anal Pap and colonoscopy He is not interested in bone density or cholesterol med. See in six months. Continue Genvoya, written for Labs in five months. Code(s): B20 - Human immunodeficiency virus [HIV] disease Category: Medical Plan: na Orders: Orders HIV-1 RNA QN PCR Expanded 5 Months B20 - Human immunodeficiency virus [HIV] disease Lymphocyte Subset Panel 3 Today B20 - Human immunodeficiency virus [HIV] disease Medications: Refilled qjxkwby-qsn-epxzm-tenof alafen [id number] mg (Genvoya) must administer with a meal/food 1 tab PO DAILY 90 days 90 tabs 1RF Coding Level of Care Code Est Pt Level 4 (91379) Diagnoses HIV (human immunodeficiency virus infection) B20
[2025-04-02 10:39] VITALS: PULSE 62; O2SAT 99; BMI 20.9
--- OUTSIDE RECORDS SUMMARY | 2025-04-02 11:10 | XMS_ITS | Encounter Summary ---
Author Organization [employer] Address [address] [place] [address] Care Team Providers Care Orchard Sprayer Name Role Phone Unavailable Primary Care Provider [...]
--- OUTSIDE RECORDS SUMMARY | 2025-04-02 11:10 | XMS_ITS | Encounter Summary ---
Author Organization [employer] Address [address] [place] [address] Care Team Providers Care Clinical Engineer Name Role Phone Unavailable Primary Care Provider [...]
--- OUTSIDE RECORDS SUMMARY | 2025-04-02 11:10 | XMS_ITS | Clinical Summary ---
Author Organization [employer] Address [address] [place] [address] Care Team Providers Care Regulatory Submissions Specialist Name Role Phone Unavailable Primary Care [...] patient's age to complete this topic Meningococcal B Vaccine Aged Out No l onger eligible based on patient's age to complete [...]
--- OUTSIDE RECORDS SUMMARY | 2025-04-02 11:10 | XMS_ITS | Encounter Summary ---
Author Organization [employer] Address [address] [place] [address] Care Team Providers Care Ship'S Surveyor Name Role Phone Unavailable Primary Care Provider [...]
--- OUTSIDE RECORDS SUMMARY | 2025-04-02 11:10 | XMS_ITS | Data Portability ---
Author Organization [facility] , [address] Address [address] [place] [address] Care Team Providers Care Shuttlecock Feather Trimmer Name Role Phone NATASHA WALTON Primary Care Provider Assessment No assessment recorded. Plan of Treatment Reminders Order Date Submit Date Provider Last Modified By Organization Details Last Modified Time Details Appointments None recorded. Lab None recorded. Referral None recorded. Procedures None recorded. Surgeries None recorded. Imaging None recorded. Medication Orders erythromyci n 5 mg/gram (0.5 %) eye ointment 2022 023 [facility] [address], [address] [place], [address], 10:45:11 Patient TargetsNo targets recorded. Patient Instructions Encounter Date Encounter Id Patient Instructions Last Modified By Organization Details Last Modified Time 05/06/2023 [id number] styes and chalazia: care instructions [email or web address] Not [...] Updated DateTime 3 182.88 cm 21 kg/m2 60843.8 2 g 98 [degF] 98 % 98 % 63 /min 16 /min 153 mm[Hg] 83 mm[Hg] JILL SWEET PA - [facility] 3 10:10:22 Social History Question Answer Notes LastModified by Organization D etails LastModified Time What Is Your Water Source? Well [email or web address] Information not available 05/06/2023 Have You Recently Traveled Abroad? No [email or web address] Information not available 05/06/2023 Sex: Unknown Functional Status Question Answer Note LastModified by Organizat ion Details LastModified Time How many times per week do you consume alcohol? 5-7 times per week Information not available 05/06/2023 Do you use any illicit or recreational drugs? No [email or web address] Information not available 05/06/2023 Do you or have you ever used any other forms of tobacco or nicotine? No [email or web address] Information not available 05/06/2023 What is your level of alcohol consumption? Moderate [email or web address] Information not available 05/06/2023 Mental Status None recorded. Family History Nothing [...] Sickle Cell Anemia N Cancer, ovarian N Baiely's Palsy N Disorder of eye N Cancer, [...] Influenza, high-dose, quadrivalent, PF 3 completed [facility] null, [facility] - [facility] [...] SNOMED-CT Code Diagnosis ICD10 Code Diagnosis Note [id number] [address] [place] [address] 05/03/2019 09:18:03 05/03/2019 09:45:46 [id number] [address] [place] [address] 10/04/2022 09:48:34 10/04/2022 10:43:11 [id number] [address] [place] [address] 12/14/2017 14:37:20 12/14/2017 15:37:45 [id number] Zac Guardado MD [address] [place] [address] 05/06/2023 09:36:51 05/06/2023 10:49:25 Internal hordeolum of lower eyelid 557153061 H00.029 Appkly warm compresses to right eye 3 times per day Health Concerns Section Related Observation LastModified by Organization Detai ls LastModified Time None Recorded Concern Status LastModified by Organization Details LastModified Time None Recorded Advance Directives Directive None Recorded Payers Insurance Date Sequence Insurance Name Policy Number Policy Hall Covered Member ID Hall Member ID Guarantor Name 05/06/2023 1 [employer] - MEDICARE ADVANTAGE PLAN (MEDICARE REPLACEMENT HMO) [id number] Andrea Del Real [id number] Andrea Del Real Notes Date Note Type Note Provider Name and Address Organization Details Recorded Time 05/06/2023 text/html Eye problemsRepo rted bypatient.Location:[facility] Eye Symptoms:sensitivity to light;pain worse with eye movement;redness;blur red vision;foreign body sensation;pain in the eyes;discharge;seeing double;watery;itching Onset/Timindays Zac Guardado MD [address] [place], [address], [place] - [facility] 05/06/2023 10:46:43
== END 2025-04-02 11:30 | disposition home or self-care (01) ==
LOC: HO.HID 10:39
PROVIDERS: PCP Internal Medicine; Visit Provider Internal Medicine
DX: B20 Human immunodeficiency virus [HIV] disease (principal)
CPT/HCPCS: 99214

== ENCOUNTER → 2025-04-02 10:39 | Outpatient (BNVA) | payer MEDICARE, SELFPAY | PROVIDERS: PCP Internal Medicine; Visit Provider Internal Medicine | DX: B20 Human immunodeficiency virus [HIV] disease (principal) | CPT/HCPCS: 99212 ==

== ENCOUNTER 2025-08-10 07:10 | Outpatient (REF) | payer MEDICARE, SELFPAY ==
--- OUTSIDE RECORDS SUMMARY | 2025-08-10 07:15 | XMS_ITS | Encounter Summary ---
Author Organization [employer] Address [address] [place] [address] Care Team Providers Care Central Office Operator Supervisor Name Role Phone Unavailable Primary Care Provider [...]
--- OUTSIDE RECORDS SUMMARY | 2025-08-10 07:15 | XMS_ITS | Clinical Summary ---
Author Organization [employer] Address [address] [place] [address] Care Team Providers Care Home Appliance Technician Name Role Phone Unavailable Primary Care [...] Vaccines (1 of 2) 2005 COVID-19 Vaccine (1 - 2023-2 5 season) 2025 Influenza Vaccine (#1) 2025 RSV Patients and Pa tients Aged 60 [...]
--- OUTSIDE RECORDS SUMMARY | 2025-08-10 07:15 | XMS_ITS | Encounter Summary ---
Author Organization [employer] Address [address] [place] [address] Care Team Providers Care Television News Anchor Name Role Phone Unavailable Primary Care Provider [...]
--- OUTSIDE RECORDS SUMMARY | 2025-08-10 07:15 | XMS_ITS | Encounter Summary ---
Author Organization [employer] Address [address] [place] [address] Care Team Providers Care Front Man Name Role Phone Unavailable Primary Care Provider [...]
[2025-08-11 15:58] LABS: HIV RNA PCR Qn Copies 359 copies/mL (NOT DETECTED); HIV RNA PCR Qn Log Copies 2.56 (NOT DETECTED)
== END 2025-08-10 07:11 | disposition home or self-care (01) ==
LOC: HO.HMGCLDS 07:10
PROVIDERS: PCP Internal Medicine; Visit Provider Internal Medicine
DX: B20 Human immunodeficiency virus [HIV] disease (principal)
CPT/HCPCS: 36415; 87536

== ENCOUNTER 2025-09-01 15:51 | Outpatient (AMB) | payer MEDICARE, SELFPAY ==
--- NOTE | 2025-09-01 15:56 | MHC.OFFVIS ---
Vital Signs 09/01/25 16:05 Pulse 67 Pulse Source Pulse Oximeter Pulse Oximetry (%) 99 Intake Visit Reasons: 6 month HIV labs Allergies No Known Allergies Allergy (Verified 09/01/25 16:10) seasonal Allergy (Unknown, Uncoded 03/22/24 06:20) Dry Eye HPI Comments Details: History of Present Illness The patient is a 70-year-old male presenting with evaluation for HIV care and potential issues surrounding medication adherence. Historically, the patient's antiretroviral regimen has successfully managed his HIV with a low viral load and a stable CD4 count. However, recent test results from August 10 indicate a viral load elevation to 359 copies/mL, although his CD4 count remains stable at 520. This rise in viral load suggests possible medication adherence issues. The patient admits to occasional lapses in the regular intake of his prescribed HIV medications, citing a lack of a pill organization system as a challenge despite his acknowledgment of the need for consistency. He has been managing Type 2 Diabetes Mellitus with Janumet, taken once daily, without adverse effects or complications. The patient is proactive regarding preventive healthcare but deferred today's anal Pap examination, intending to address these preventive measures, including potential colonoscopy and anal Pap tests, at an upcoming appointment with his primary care provider. He self-reports being diligent in maintaining vaccinations. Notably, he has plans to meet a new partner and recognizes the importance of taking precautions given his current viral load status to prevent transmission. Review of Systems - General: Denies fever or weight loss. - Musculoskeletal: Denies pain or tenderness in extremities. - Neurological: Denies cognitive issues; notes occasional distraction. - Respiratory: Denies shortness of breath or cough. - Cardiovascular: Denies palpitations. - Gastrointestinal: Denies abdominal pain or tenderness. - Psychological: Reports mild depression. Physical Exam - General- Vital signs are stable. - HEENT- Pupils are reactive to light and accommodation; oropharynx is clear. - Respiratory- Lungs are clear on auscultation. - Cardiovascular- Heart rhythm is regular. - Abdominal- Abdomen is soft and non-tender. - Extremities- Non-tender. - Neurological- Non-focal exam. - Dermatological- Skin is clear. Results - Labs: Viral load as of August 10 is 359 copies/mL; CD4 count is 520. Plan Patient was informed and verbally consented to the use of an ambient scribe for clinic note documentation during this visit. 1. Human immunodeficiency virus [HIV] disease B20 HCC 1 Consistent antiretroviral adherence through pillbox use was emphasized. A viral load recheck in two months was planned. Discussed safety precautions considering new relationship plans and viral load status. 2. Unspecified Medication Nonadherence Recommended a pillbox to improve adherence to antiretrovirals, emphasizing regimen consistency. 3. Type 2 diabetes mellitus without complications E11.9 HCC 19 Continued Jusumet with plans for follow-up with primary care for routine diabetic management and care. Discussion Notes I reiterated the essential nature of adherence to his antiretroviral regimen, introducing a pillbox to facilitate this adherence. We discussed transmission risks if the viral load increases, especially with a new partner. The patient agreed on the importance of protective measures and maintaining a stable viral load. We also agreed to retest the viral load in two months to evaluate adherence success. Continued diabetes management with Janumet and primary care coordination was stressed. Medical Decision Making The patient's elevated viral load is likely due to medication nonadherence. He acknowledged this risk related to inconsistent medication intake, influenced by a lack of a structured system. A pillbox was advised to ensure consistent dosing and viral suppression. With a stable CD4 count, acute immune compromise is not apparent. Given his social engagement plans, transmission risk discussions were prioritized. For diabetes, continued S[place]at, with an emphasis on coordination with his primary care for optimal diabetes management. Patient Instructions - Use a pillbox to help remember to take your medication each day. - Take your HIV medication at the same time every day. - Use protection when you have sex to prevent passing the virus to others. - Follow up with your primary care doctor next month for a full exam and to discuss preventive measures. - Stay updated on your vaccinations. - Get your viral load checked in two months. - Keep taking your diabetes medication as prescribed and watch for any changes in your health. Genvoya refilled for six months Recheck viral load in two months. [facility] Medical History HIV (human immunodeficiency virus infection) Physical Exam Vital Signs: Last Vital Signs Pulse 67 09/01/25 16:05 Pulse Ox 99 09/01/25 16:05 Assessment & Plan Assessment & Plan (1) HIV (human immunodeficiency virus infection): Comment: He is doing well. He has CD4 count of 520 and viral load undetectable on 03/09/2025. He takes Genvoya daily and gets it 90 day with one refill. He declines anal Pap and colonoscopy He is not interested in bone density or cholesterol med. See in six months. Continue Genvoya, written for Labs in five months. Code(s): B20 - Human immunodeficiency virus [HIV] disease Category: Medical Plan see above Orders: Orders HIV-1 RNA QN PCR Expanded 2 Months B20 - Human immunodeficiency virus [HIV] disease Medications: Refilled utlzmqp-znd-dngsx-tenof alafen [id number] mg (Genvoya) must administer with a meal/food 1 tab PO DAILY 90 tabs 1RF 90 days Coding Level of Care Code Est Pt Level 4 (42619) Diagnoses HIV (human immunodeficiency virus infection) B20 Additional Codes PHQ-9 - 50686 - PHQ-9 Billing: Yes ([id number]) PHQ-9 Over the last 2 weeks, how often have you been bothered by any of the following problems? 1. Little interest or pleasure in doing things: not at all 2. Feeling down, depressed, or hopeless: not at all 3. Trouble falling or staying asleep, or sleeping too much: not at all 4. Feeling tired or having little energy: not at all 5. Poor appetite or overeating: not at all 6. Feeling bad about yourself - or that you are a failure or have let yourself or your family down: not at all 7. Trouble concentrating on things, such as reading the newspaper or watching television: not at all 8. Moving or speaking so slowly that other people could have noticed. Or the opposite - being so fidgety or restless that you have been moving around a lot more than usual: not at all 9. Thoughts that you would be better off or of hurting yourself in some way: not at all Total score: 0 00683 - PHQ-9 Billing: Yes Source: Developed by Drs. Iglesia Fernandez, Ira Nesbitt, Angel Reynoso and colleagues, with an educational ronald from [employer].
[2025-09-01 16:05] VITALS: PULSE 67; O2SAT 99
--- OUTSIDE RECORDS SUMMARY | 2025-09-01 19:07 | XMS_ITS | Encounter Summary ---
Author Organization [employer] Address [address] [place] [address] Care Team Providers Care Rn Picu Name Role Phone Unavailable Primary Care Provider [...]
--- OUTSIDE RECORDS SUMMARY | 2025-09-01 19:07 | XMS_ITS | Clinical Summary ---
Author Organization [employer] Address [address] [place] [address] Care Team Providers Care Wet Wheeler Name Role Phone Unavailable Primary Care Provider [...]
--- OUTSIDE RECORDS SUMMARY | 2025-09-01 19:07 | XMS_ITS | Encounter Summary ---
Author Organization [employer] Address [address] [place] [address] Care Team Providers Care Individual Pension Consultant Name Role Phone Unavailable Primary Care Provider [...]
--- OUTSIDE RECORDS SUMMARY | 2025-09-01 19:07 | XMS_ITS | Data Portability ---
Author Organization [facility], [id number] Address [address] [place] [address] Care Team Providers Care Scleroscope Tester Name Role Phone NATASHA WALTON Primary Care Provider Assessment No assessment recorded. Plan of Treatment Reminders Order Date Submit Date Provider Last Modified By Organization Details Last Modified Time Details Appointments None recorded. Lab None recorded. Referral None recorded. Procedures None recorded. Surgeries None recorded. Imaging None recorded. Medication Orders erythromyci n 5 mg/gram (0.5 %) eye ointment 2022 023 [facility], [address] [place], [address], 10:45:11 Patient TargetsNo targets recorded. Patient Instructions Encounter Date Encounter Id Patient Instructions Last Modified By Organization Details Last Modified Time 05/06/2023 [id number] styes and chalazia: care instructions [email or web address] Not [...] Pulse oximetry Heart rate Respiratory rate Systolic And Diastolic Provider Name and Address Organization Details Last Updated DateTime 3 182.88 cm 21 kg/m2 56311.8 2 g 98 [degF] 98 % 98 % 63 /min 16 /min 153/83 mm[Hg] JILL SWEET PA - [facility] 3 10:10:22 Social History Question Answer Notes LastModified by Organization D etails LastModified Time What Is Your Water Source? Well [email or web address] Information not available 05/06/2023 Have You Recently Traveled Abroad? No [email or web address] Information not available 05/06/2023 Sex: Unknown Functional Status Question Answer Note LastModified by Organizat ion Details LastModified Time How many times per week do you consume alcohol? 5-7 times per week [email or web address] Information not available 05/06/2023 Do you use any illicit or recreational drugs? No [email or web address] Information not available 05/06/2023 Do you or have you ever used any other forms of tobacco or nicotine? No [email or web address] Information not available 05/06/2023 What is your level of alcohol consumption? Moderate [email or web address] Information not available 05/06/2023 Mental Status None recorded. Family History Nothing Reported. Medical History Condition Response Gout N Cancer, liver N Thyroid disorder N Hyperthyroidism N Rheumatoid arthritis N GI bleeding N Irritable bowel syndrome N COPD N Depression N Tinnitus, unspecified ear N Pneumonia N Cancer, uterus N Mental disorder, NOS N Headaches/Migraines N Insomia N Alzheimer's disease N Anxiety Disorder N Obesity N Arthritis N Cancer Y Stroke N Alcohol abuse N Liver disease N Allergy Food/Medication N Cancer, bladder N Peripheral artery disease N Oxygen dependence [...] N Joint disorder, unspecified N Menopause N Back disorder N Drug dependence, unspecified N Hypothyroidism N Disorder kidney N Sickle Cell Anemia N Cancer, ovarian N Bailey's Palsy N Disorder of eye N Cancer, prostate N Allergy Seasonal N Disorder of lymph system N Disorder of urinary system N Drug abuse N Radiculopathy, site unspecified N Myoneural disorder, unspecified N Nervous system disorder N ADHD N High Cholesterol N Post-herpetic neuralgia N Aneurysm, cerebral N Tinnitus, left ear N Prostate hypertrophy, benign N Disorder of skin/subcutaneous N Osteoarthritis N Disorder of ear N Ovarian cysts N Parkinson's disease N Low back pain N Carpal tunnel syndrome N Anemia N Disorder of muscle N Kidney stone N Bipolar affective disorder N Leukemia, unspecified N Diabetes N Disorder involving the immune mechanism N Endocrine disorder N Seizure N Hyperlipidemia N Eczema N Emphysema, unspecified N Lymphoma N Dementia N Diverticulitis N Lupus N Seizure disorder N Reflux/GERD N Sleep Apnea N Cancer, bone N Cardiac arrhythmia, unspecified N Disorder of thyroid N Disorder of bone N Heart Disease N Disorder of brain N Liver Disorder N Aneurysm, aortic N Hypertension N Osteoporosis N Disease of digestive system, unspecified N Gastroesophageal reflux (GERD) N Immunizations Vaccine Type Date Status Note [...] Diagnosis SNOMED-CT Code Diagnosis ICD10 Code Diagnosis IMO Codes Diagnosis Note [id number] [facility] [address] [place] [address] 05/03/2019 09:18:03 05/03/2019 09:45:46 [id number] [address] [address] [place] [address] 10/04/2022 09:48:34 10/04/2022 10:43:11 [id number] [address] [address] [place] [address] 12/14/2017 14:37:20 12/14/2017 15:37:45 [id number] Zac Guardado MD [address] [place] [address] 05/06/2023 09:36:51 05/06/2023 10:49:25 Internal hordeolum of lower eyelid [id number] H00.029 Appkly warm compresses to right eye [...] - MEDICARE ADVANTAGE PLAN (MEDICARE REPLACEMENT HMO) [id number] Andrea Del Real [id number] Andrea Del Real Notes Date Note Type Note Provider Name and Address Organization Details Recorded Time 3 text/html Eye problemsReported by PatientHPIFor eye symptoms, patient reportssensitivity to light,pain worse with eye movement,redness,blurre d vision,foreign body sensation,pain in the eyes,discharge,seeing double,watery, anditching. For location, patient reportsright. For onset/timing, patient [id number]. Zac Guardado MD [address] [place], [place] [address]ress [place], [address], [place] - [facility] 05/06/2023 10:46:43
--- OUTSIDE RECORDS SUMMARY | 2025-09-01 19:07 | XMS_ITS | Encounter Summary ---
Author Organization [employer] Address [address] [place] [address] Care Team Providers Care Potato Chip Fryer Name Role Phone Unavailable Primary Care Provider [...]
== END 2025-09-01 16:34 | disposition home or self-care (01) ==
LOC: HO.HID 15:51
PROVIDERS: PCP Internal Medicine; Visit Provider Internal Medicine
DX: B20 Human immunodeficiency virus [HIV] disease (principal)
CPT/HCPCS: 99214

== ENCOUNTER → 2025-09-01 15:51 | Outpatient (BNVA) | payer MEDICARE, SELFPAY | PROVIDERS: PCP Internal Medicine; Visit Provider Internal Medicine | DX: B20 Human immunodeficiency virus [HIV] disease (principal); E11.9 Type 2 diabetes mellitus without complications; Z79.84 Long term (current) use of oral hypoglycemic drugs; Z79.899 Other long term (current) drug therapy | CPT/HCPCS: 96127; 99212 ==

== ENCOUNTER 2025-11-04 09:20 | Outpatient (REF) | payer MEDICARE, SELFPAY ==
[2025-11-06 20:38] LABS: HIV RNA PCR Qn Copies NOT DETECTED copies/mL (NOT DETECTED); HIV RNA PCR Qn Log Copies NOT DETECTED (NOT DETECTED)
== END 2025-11-04 09:21 | disposition home or self-care (01) ==
LOC: HO.HMGCLDS 09:20
PROVIDERS: PCP Internal Medicine; Visit Provider Internal Medicine
DX: B20 Human immunodeficiency virus [HIV] disease (principal)
CPT/HCPCS: 36415; 87536